=== PATIENT | male | born 1990 | race African-American/Black ===

== ENCOUNTER 2019-03-20 14:30 | Outpatient (CLI) | payer OTHER ==
--- NOTE | 2019-03-21 12:13 | MRI Report ---
Reason: LOW BACK PAIN Procedure Date: 03/20/2019 Accession Number: [id number] / [id number] Procedure: MRI - Lumbar Spine W/O CPT Code: FULL RESULT: EXAM: MRI LUMBAR SPINE WITHOUT CONTRAST EXAM DATE: 03/20/2019 03:05 PM. CLINICAL HISTORY: LOW BACK PAIN. COMPARISON: None. TECHNIQUE: Multiplanar, multisequence T1-weighted and fluid-sensitive sequences of the lumbar spine from T12 to S1 without contrast. Other: None. FINDINGS: Spinal Canal: The conus terminates at L1. The conus medullaris and cauda equina are unremarkable. Alignment: Straightening of the normal physiologic lumbar lordosis. No spondylolisthesis or scoliosis. Bone Marrow: Five ect-xsc-szlhlja lumbar vertebral bodies are assumed. No gross fractures or bone lesions. No bone marrow replacement. Disk Levels/Facets: T12-L1: Unremarkable. L1-L2: Unremarkable. L2-L3: Unremarkable. L3-L4: Unremarkable. L4-L5: Mild intervertebral disk height loss and disk desiccation. Shallow left central disk extrusion compresses the traversing left L5 nerve root within the lateral recess and causes mild central canal and left foraminal stenosis. No right foraminal stenosis. L5-S1: Unremarkable. Musculature: Normal. No edema or fatty atrophy. Other: The partially visualized retroperitoneum is unremarkable. IMPRESSION: A left central disk extrusion at L4-L5 causes mild central canal and left lateral recess stenosis with compression of the traversing left L5 nerve root within the lateral recess. There is also mild left foraminal stenosis. Comment: The following findings are so common in adults without low back pain that while we report their presence, they must be interpreted with caution and in the context of the clinical situation. (Reference Daniellak et al, Spine 2001) Prevalence of findings in patients without low back pain: Disk degeneration (any evidence): 92% Disk desiccation/T2 signal loss: 83% Disk height loss: 56% Disk bulge: 64% Disk protrusion: 32% Annular tear/high intensity zone: 38% RADIA
== END 2019-03-20 14:31 | disposition home or self-care (01) ==
LOC: DI 14:30
DX: M51.26 Other intervertebral disc displacement, lumbar region (principal); M51.36 Other intervertebral disc degeneration, lumbar region; M48.061 Spinal stenosis, lumbar region without neurogenic claudication
CPT/HCPCS: 72148